=== PATIENT | female | born 1970 | race Caucasian/White ===

== ENCOUNTER 2018-10-24 12:43 | Emergency (ER) | payer OTHER | END 2018-10-24 14:04 | disposition home or self-care (01) | LOC: ER 12:43 ==

== ENCOUNTER 2018-10-25 17:33 | Emergency (ER) | payer MEDICARE ==
[~2018-10-25] VITALS: Ht 162.6 cm; Wt 47.6 kg
[2018-10-25] MEDS ORDERED: RT-ALBUTEROL SULF 2.5 MG/3 ML PRE-MIX VIAL INH STA (18:04)
[2018-10-25] MEDS ORDERED: CARVEDILOL 12.5 MG (COREG) TABLET PO ONE (18:15)
--- OUTSIDE RECORDS SUMMARY | 2018-10-25 18:39 | XMS REPORT | Continuity of Care Document ---
Author Organization Unknown Address Unknown Allergies Active Description Code Type Severity Reaction Onset Reported/Identified Relationship to Patient Clinical Status Yes ASPIRIN 27196 DRUG INGREDI N/A N/A 05/27/2011 Yes PHENYTOIN SODIUM EXTENDED 65027 DRUG N/A Other 05/27/2011 Yes [id number] 60637 DRUG N/A Other 05/27/2011 Medications Medication Packaging Start Date Stop Date Route Dosage Sig ONDANSETRON 4 MG PO TBDP 09/25/2018 Oral 4 ONCE DEXTROSE 50 % IV SOLN 09/25/2018 Intravenous 50 ONCE INSULIN REGULAR HUMAN 100 UNIT/ML IJ SOLN 09/25/2018 Intravenous 10 ONCE POLYETHYLENE GLYCOL 3350 PO PACK 09/25/2018 Oral 17 DAILY PRN MELATONIN 5 MG PO TABS 09/25/2018 Oral 5 BEDTIME PRN SODIUM CHLORIDE 0.9% IV SOLN FLUSH ONLY 09/25/2018 Intravenous 25 PRN FLUSH ALBUTEROL SULFATE HFA 108 (90 BASE) MCG/ACT IN AERS 09/25/2018 Inhalation 1 EVERY 4 HOURS PRN ONDANSETRON HCL 4 MG/2ML IJ SOLN 09/25/2018 Intravenous 4 EVERY 8 HOURS PRN ACETAMINOPHEN 650 MG RE SUPP 09/25/2018 Rectal 650 EVERY 4 HOURS PRN PROCHLORPERAZINE EDISYLATE 10 MG/2ML IJ SOLN 09/25/2018 Intravenous 10 EVERY 6 HOURS PRN ACETAMINOPHEN 325 MG PO TABS 09/25/2018 Oral 650 EVERY 4 HOURS PRN ONDANSETRON 4 MG PO TBDP 09/25/2018 Oral 4 EVERY 6 HOURS PRN LIDOCAINE HCL 1 % IJ SOLN 09/25/2018 Intradermal PRN SODIUM CHLORIDE 0.9 % IV BOLUS 09/25/2018 Dialysis 2000 BOLUS PRN HEPARIN SODIUM (PORCINE) 5000 UNIT/ML IJ SOLN 09/25/2018 Subcutaneous 5000 EVERY 12 HOURS CALCIUM CARBONATE ANTACID 500 MG PO CHEW 09/25/2018 Oral 1 3 TIMES DAILY WITH MEALS NICOTINE 21 MG/24HR TD PT24 09/25/2018 Transdermal 1 DAILY FLUOXETINE HCL 10 MG PO CAPS 09/25/2018 Oral 10 DAILY AMLODIPINE BESYLATE 10 MG PO TABS 09/25/2018 Oral 10 DAILY LISINOPRIL 20 MG PO TABS 09/25/2018 Oral 40 DAILY CARVEDILOL 12.5 MG PO TABS 09/25/2018 Oral 12.5 2 TIMES DAILY PANTOPRAZOLE SODIUM 20 MG PO TBEC 09/26/2018 Oral 20 EVERY MORNING BEFORE BREAKFAST LISINOPRIL 20 MG PO TABS 09/26/2018 Oral 40 DAILY CLONIDINE HCL 0.1 MG PO TABS 09/28/2018 Oral 0.1 EVERY 8 HOURS PRN HYDRALAZINE HCL 25 MG PO TABS 09/28/2018 Oral 75 EVERY 6 HOURS SCHEDULED LIDOCAINE HCL 1 % IJ SOLN 09/28/2018 Intradermal PRN SODIUM CHLORIDE 0.9 % IV BOLUS 09/28/2018 Dialysis 2000 BOLUS PRN Problems Date Dx Coded Attending Type Code Diagnosis Diagnosed By 09/29/2018 MOHAN BECK V 225701 Abdominal Pain 09/29/2018 MOHAN BECK A E87.5 Hyperkalemia 09/29/2018 MOHAN BECK V I16.0 Hypertensive urgency 09/29/2018 CARLA BECKA V N18.6 End stage renal disease (HCC) 09/29/2018 MOHAN BECK P N18.6 End stage renal disease (HCC) 09/29/2018 MOHAN BECK P Z99.2 Dependence on renal dialysis (HCC) 09/29/2018 CARLA BECKA V E87.5 Hyperkalemia 09/29/2018 MOHAN BECK F E87.1 Hypo- osmolality and hyponatremia 09/29/2018 MOHAN BECK F E87.5 Hyperkalemia 09/29/2018 MOHAN BECK F F17.210 Nicotine dependence, cigarettes, uncomplicated 09/29/2018 MOHAN BECK F I12.0 Hypertensive chronic kidney disease with stage 5 chronic kidney disease or end stage renal disease (HCC) 09/29/2018 MOHAN BECK F I16.0 Hypertensive urgency 09/29/2018 MOHAN BECK F I35.0 Nonrheumatic aortic (valve) stenosis 09/29/2018 MOHAN BECK I45.81 Long QT syndrome 09/29/2018 MOHAN BECK F I47.1 Supraventricular tachycardia (HCC) 09/29/2018 MOOLE MOHAN F J44.9 Chronic obstructive pulmonary disease, unspecified (HCC) 09/29/2018 MOOLE MOHAN F K21.9 Gastro- esophageal reflux disease without esophagitis 09/29/2018 MOOLE MOHAN F N18.6 End stage renal disease (HCC) 09/29/2018 MOOLEMOHAN N26.9 Renal sclerosis, unspecified 09/29/2018 MOOLE, MOHAN F R63.6 Underweight 09/29/2018 MOOLE, MOHAN F Z59.9 Problem related to housing and economic circumstances, unspecified 09/29/2018 MOOLEMOHAN Z68.1 Body mass index (BMI) 19.9 or less, adult 09/29/2018 MOOLE, MOHAN Torrez Z71.3 Dietary counseling and surveillance 09/29/2018 MOOLEMOHAN 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 09/29/2018 MOOLEMOHAN 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 09/29/2018 MOOLE MOHAN F Z90.710 Acquired absence of both cervix and uterus 09/29/2018 MOOLEMOHAN Z94.0 Kidney transplant status 09/29/2018 MOHAN BECK Z99.2 Dependence on renal dialysis (HCC) 10/15/2018 SANGITA DUBON V 217498 Abrasion 10/15/2018 SANGITA DUBON T14.8XXA Other injury of unspecified body region, initial encounter 10/15/2018 SANGITA DUBON Z53.21 Procedure and treatment not carried out due to patient leaving prior to being seen by health care provider Procedures Code Description Performed By Performed On [id number] Performance of Urinary Filtration, <6 hrs/day 09/25/2018 Results Test Result Range CBC WITH AUTO DIFFERENTIAL - 09/25/18 12:05 BASOPHILS RELATIVE PERCENT 0.5 % 0.0-2.5 EOSINOPHILS RELATIVE PERCENT 1.9 % <=5.0 HEMATOCRIT 35.1 % 34.9-44.5 HEMOGLOBIN 11.4 g/dL 12.0-15.5 LYMPHOCYTES RELATIVE PERCENT 18.8 % 22.0-49.0 MEAN CORPUSCULAR HEMOGLOBIN 33.8 pg 26.0-34.0 MEAN CORPUSCULAR HEMOGLOBIN CONC 32.5 g/dL 31.0-37.0 MEAN CORPUSCULAR VOLUME 104.2 fL 81.6-98.3 MONOCYTES RELATIVE PERCENT 9.1 % 2.0-9.0 NEUTROPHILS RELATIVE PERCENT 69.7 % 40.0-75.0 NUCLEATED RED BLOOD CELLS 0 10E9/L <=0 PLATELET COUNT 270 10E9/L 150-450 RED BLOOD CELL COUNT 3.37 10E12/L 3.90-5.03 RED CELL DISTRIBUTION WIDTH 18.2 % 11.9-15.5 [id number] 11.0 10E9/L 3.5-10.5 2126553 2.07 10E9/L 0.90-2.90 0133087 1.00 10E9/L 0.30-0.90 3740754 0.21 10E9/L 0.05-0.50 6609249 7.68 10E9/L 1.70-7.00 1520371 0.05 10E9/L 0.00-0.30 4708758 1 % HEPATITIS B SURFACE ANTIGEN - 09/25/18 12:05 HEPATITIS B SURFACE ANTIGEN INTERPRETATION Non-reactive Non- reactive CBC WITH AUTO DIFFERENTIAL - 09/26/18 07:18 BASOPHILS RELATIVE PERCENT 0.8 % 0.0-2.5 EOSINOPHILS RELATIVE PERCENT 1.9 % <=5.0 HEMATOCRIT 41.8 % 34.9-44.5 HEMOGLOBIN 13.2 g/dL 12.0-15.5 LYMPHOCYTES RELATIVE PERCENT 13.3 % 22.0-49.0 MEAN CORPUSCULAR HEMOGLOBIN 33.4 pg 26.0-34.0 MEAN CORPUSCULAR HEMOGLOBIN CONC 31.6 g/dL 31.0-37.0 MEAN CORPUSCULAR VOLUME 105.8 fL 81.6-98.3 MONOCYTES RELATIVE PERCENT 9.6 % 2.0-9.0 NEUTROPHILS RELATIVE PERCENT 74.4 % 40.0-75.0 NUCLEATED RED BLOOD CELLS 0 10E9/L <=0 PLATELET COUNT 274 10E9/L 150-450 RED BLOOD CELL COUNT 3.95 10E12/L 3.90-5.03 RED CELL DISTRIBUTION WIDTH 19.4 % 11.9-15.5 9874006 11.9 10E9/L 3.5-10.5 7880837 1.59 10E9/L 0.90-2.90 6118513 1.15 10E9/L 0.30-0.90 1197286 0.23 10E9/L 0.05-0.50 0625104 8.88 10E9/L 1.70-7.00 0255367 0.09 10E9/L 0.00-0.30 6067141 0 % SCAN - 09/26/18 07:18 ANISOCYTOSIS 2+ [id number] Normal [id number] Results confirmed by microscopic exam [id number] 1+ COMPREHENSIVE METABOLIC PANEL - 09/26/18 07:18 ALBUMIN 4.1 g/dL 3.4-4.8 ALKALINE PHOSPHATASE 72 U/L 29-122 ALT 15 U/L 10-46 ANION GAP 16 AST 21 U/L 16-37 BILIRUBIN,TOTAL 0.3 mg/dL 0.0-1.2 BUN BLOOD 65 mg/dL 6-20 CALCIUM 7.5 mg/dL 8.7-10.5 CHLORIDE 91 mmol/L 99-111 CO2 28 mmol/L 20-36 CREATININE 5.90 mg/dL 0.40-1.10 EGFR 8 mL/min >59 GLUCOSE 78 mg/dL 74-106 POTASSIUM 5.3 mmol/L 3.6-4.9 PROTEIN TOTAL 6.1 g/dL 6.4-8.3 SODIUM 135 mmol/L 136-145 CBC WITH AUTO DIFFERENTIAL - 09/27/18 07:23 BASOPHILS RELATIVE PERCENT 0.5 % 0.0-2.5 EOSINOPHILS RELATIVE PERCENT 2.5 % <=5.0 HEMATOCRIT 37.4 % 34.9-44.5 HEMOGLOBIN 11.8 g/dL 12.0-15.5 LYMPHOCYTES RELATIVE PERCENT 15.1 % 22.0-49.0 MEAN CORPUSCULAR HEMOGLOBIN 33.1 pg 26.0-34.0 MEAN CORPUSCULAR HEMOGLOBIN CONC 31.6 g/dL 31.0-37.0 MEAN CORPUSCULAR VOLUME 105.1 fL 81.6-98.3 MONOCYTES RELATIVE PERCENT 10.5 % 2.0-9.0 NEUTROPHILS RELATIVE PERCENT 71.4 % 40.0-75.0 NUCLEATED RED BLOOD CELLS 0 10E9/L <=0 PLATELET COUNT 250 10E9/L 150-450 RED BLOOD CELL COUNT 3.56 10E12/L 3.90-5.03 RED CELL DISTRIBUTION WIDTH 19.8 % 11.9-15.5 3758266 12.2 10E9/L 3.5-10.5 7940671 1.84 10E9/L 0.90-2.90 6446656 1.28 10E9/L 0.30-0.90 3053183 0.31 10E9/L 0.05-0.50 1533473 8.67 10E9/L 1.70-7.00 2655907 0.06 10E9/L 0.00-0.30 8049903 0 % SCAN - 09/27/18 07:23 ANISOCYTOSIS 2+ POLYCHROMASIA 1+ [id number] Results confirmed by microscopic exam [id number] 1+ COMPREHENSIVE METABOLIC PANEL - 09/27/18 07:23 ALBUMIN 3.9 g/dL 3.4-4.8 ALKALINE PHOSPHATASE 68 U/L 29-122 ALT 12 U/L 10-46 ANION GAP 16 AST 16 U/L 16-37 BILIRUBIN,TOTAL < mg/dL 0.0-1.2 BUN BLOOD 95 mg/dL 6-20 CALCIUM 7.2 mg/dL 8.7-10.5 CHLORIDE 91 mmol/L 99-111 CO2 25 mmol/L 20-36 CREATININE 8.53 mg/dL 0.40-1.10 EGFR 5 mL/min >59 GLUCOSE 80 mg/dL 74-106 POTASSIUM 6.1 mmol/L 3.6-4.9 PROTEIN TOTAL 5.9 g/dL 6.4-8.3 SODIUM 132 mmol/L 136-145 CBC WITH AUTO DIFFERENTIAL - 09/28/18 08:36 BASOPHILS RELATIVE PERCENT 0.6 % 0.0-2.5 EOSINOPHILS RELATIVE PERCENT 1.8 % <=5.0 HEMATOCRIT 38.6 % 34.9-44.5 HEMOGLOBIN 12.3 g/dL 12.0-15.5 LYMPHOCYTES RELATIVE PERCENT 13.8 % 22.0-49.0 MEAN CORPUSCULAR HEMOGLOBIN 34.2 pg 26.0-34.0 MEAN CORPUSCULAR HEMOGLOBIN CONC 31.9 g/dL 31.0-37.0 MEAN CORPUSCULAR VOLUME 107.2 fL 81.6-98.3 MONOCYTES RELATIVE PERCENT 10.7 % 2.0-9.0 NEUTROPHILS RELATIVE PERCENT 73.1 % 40.0-75.0 NUCLEATED RED BLOOD CELLS 0 10E9/L <=0 PLATELET COUNT 212 10E9/L 150-450 RED BLOOD CELL COUNT 3.60 10E12/L 3.90-5.03 RED CELL DISTRIBUTION WIDTH 20.2 % 11.9-15.5 8039172 8.7 10E9/L 3.5-10.5 3890272 1.20 10E9/L 0.90-2.90 4144613 0.93 10E9/L 0.30-0.90 2625739 0.16 10E9/L 0.05-0.50 1231145 6.33 10E9/L 1.70-7.00 1331017 0.05 10E9/L 0.00-0.30 6951685 0 % SCAN - 09/28/18 08:36 ANISOCYTOSIS 3+ [id number] Normal [id number] Results confirmed by microscopic exam [id number] 2+ [id number] 2+ HEPATITIS B SURFACE ANTIBODY - 09/28/18 08:36 1051 < HEPATITIS C ANTIBODY - 09/28/18 08:36 HEP C IGG INTERP. Non-reactive Non-reactive HEPATITIS B CORE ANTIBODY, TOTAL - 09/28/18 08:36 [id number] Negative Negative CBC WITH AUTO DIFFERENTIAL - 09/29/18 06:57 BASOPHILS RELATIVE PERCENT 0.5 % 0.0-2.5 EOSINOPHILS RELATIVE PERCENT 2.7 % <=5.0 HEMATOCRIT 35.7 % 34.9-44.5 HEMOGLOBIN 11.2 g/dL 12.0-15.5 LYMPHOCYTES RELATIVE PERCENT 13.2 % 22.0-49.0 MEAN CORPUSCULAR HEMOGLOBIN 33.9 pg 26.0-34.0 MEAN CORPUSCULAR HEMOGLOBIN CONC 31.4 g/dL 31.0-37.0 MEAN CORPUSCULAR VOLUME 108.2 fL 81.6-98.3 MONOCYTES RELATIVE PERCENT 10.3 % 2.0-9.0 NEUTROPHILS RELATIVE PERCENT 73.3 % 40.0-75.0 NUCLEATED RED BLOOD CELLS 0 10E9/L <=0 PLATELET COUNT 176 10E9/L 150-450 RED BLOOD CELL COUNT 3.30 10E12/L 3.90-5.03 RED CELL DISTRIBUTION WIDTH 19.9 % 11.9-15.5 0586505 9.2 10E9/L 3.5-10.5 2530424 1.21 10E9/L 0.90-2.90 2089587 0.94 10E9/L 0.30-0.90 5662288 0.25 10E9/L 0.05-0.50 4933663 6.72 10E9/L 1.70-7.00 8011737 0.05 10E9/L 0.00-0.30 6940681 0 % SCAN - 09/29/18 06:57 ANISOCYTOSIS 2+ POLYCHROMASIA Occasional TEAR DROP CELLS Occasional [id number] 2+ [id number] 1+ COMPREHENSIVE METABOLIC PANEL - 09/29/18 06:57 ALBUMIN 3.7 g/dL 3.4-4.8 ALKALINE PHOSPHATASE 69 U/L 29-122 ALT 12 U/L 10-46 ANION GAP 11 AST 16 U/L 16-37 BILIRUBIN,TOTAL < mg/dL 0.0-1.2 BUN BLOOD 77 mg/dL 6-20 CALCIUM 7.5 mg/dL 8.7-10.5 CHLORIDE 91 mmol/L 99-111 CO2 27 mmol/L 20-36 CREATININE 7.77 mg/dL 0.40-1.10 EGFR 6 mL/min >59 GLUCOSE 104 mg/dL 74-106 POTASSIUM 5.3 mmol/L 3.6-4.9 PROTEIN TOTAL 5.5 g/dL 6.4-8.3 SODIUM 129 mmol/L 136-145 Radiology Report from 536 on 09/25/2018 12:13:44 EXAM: Chest 25 Sep 2018INDICATION: Respiratory distress in a 48-year-old femaleTECHNIQUE: PA and lateral views 11:55 a.m.COMPARISON: NoneFINDINGS:The heart size is normal.The great vessels appear unremarkable.There is no hilar or mediastinal mass.The lungs are clear.There is no pleural effusion or pneumothorax.There are no significant osseous abnormalities.IMPRESSION:No active cardiopulmonary diseas e. Encounters ACCT No. Visit Date/Time Discharge Status Pt. Type Provider Facility Loc./Unit Complaint [id number] 10/15/2018 16:25:00 10/15/2018 17:20:00 DIS Emergency SANGITA DUBON [facility] EMD [id number] 10/15/2018 15:47:00 10/15/2018 15:57:00 DIS Emergency [facility] [id number] 09/25/2018 11:25:03 09/29/2018 14:44:00 DIS Inpatient MOHAN BECK [address] [id number] 09/30/2018 13:29:17 Document Registration [id number] 09/25/2018 11:50:31 Document Registration
[2018-10-25] MEDS ORDERED: RT-ALBUINH INH (18:47)
--- NOTE | 2018-10-25 18:48 | ED General ---
General Chief Complaint: Respiratory Problems Stated Complaint: SOB/STOMACH PAIN Nursing Triage Note: PT ARRIVES VIA EMS WITH C/O ABD PAIN AND SOA. PT DENIES CHEST PAIN. PT STATES SHE SMOKES 1/2 OF CIGARETTES PER DAY. PT WAS IN [employer] UNTIL 1500 TODAY AND HAS NOT TAKEN ANY OF HER MEDICATIONS SINCE SHE WAS IN THE ER YESTERDAY. Nursing Sepsis Screen: No Definite Risk History of Present Illness Date Seen by Provider: Oct 25, 2018 Time Seen by Provider: 17:45 Initial Comments 48-year-old female presents via EMS. She was recently released from the [facility] and walked approximately one block, she presented to the [facility] requesting a transfer to her dialysis center. When it was explained that this could not be done she then called 911 requesting a transfer to dialysis. In EMS. The patient up-to-date explained to her that she could be brought to the emergency department but not to her dialysis center. She then requested transfer to via [facility] emergency department. When questioned about her health complaints, the patient states "I just needed a ride to [place] because my car is at the [place] police department. I do not need anything here. I just couldn't walk from [place] to my car but I can walk from here to my car." Verified patient declined dyspnea, shortness of air, chest pain, or abdominal pain. She is scheduled for her next dialysis treatment tomorrow. Timing/Duration: 1 Hour Associated Systoms: Denies Symptoms Allergies and Home Medications Allergies Coded Allergies: No Known Drug Allergies (Unverified , 10/24/18) Home Medications Albuterol Sulfate 1 Puff Puff, 2 PUFF INH Q4H 1 PUFF = 90 MCG Prescribed by: THAIS PALAFOX on 10/25/18 1694 Patient Home Medication List Home Medication List Reviewed: Yes Review of Systems Review of Systems Constitutional: no symptoms reported, see HPI All Other Systems Reviewed Negative Unless Noted: Yes Past Gekpymp-Jhxkon-Ypbdbs Hx Past Med/Social Hx: Reviewed Nursing Past Med/Soc Hx Patient Social History Alcohol Use: Denies Use Recreational Drug Use: Yes Drug of Choice: THC Smoking Status: Current Everyday Smoker Type Used: Cigarettes 2nd Hand Smoke Exposure: Yes Recent Foreign Travel: No Contact w/Someone Who Travel: No Recent Infectious Disease Expo: No Recent Hopitalizations: No Physical Abuse: No Sexual Abuse: No Seasonal Allergies Seasonal Allergies: No Past Medical History Surgeries: Yes Kidney Transplant, Renal Respiratory: Yes COPD Cardiac: Yes Hypertension Neurological: No Genitourinary: Yes Renal Failure, Dialysis Gastrointestinal: No Musculoskeletal: No Endocrine: Yes HEENT: No Cancer: No Psychosocial: No Integumentary: No Blood Disorders: Yes Physical Exam Vital Signs Vital Signs - First Documented 10/25/18 17:41 Temp 97.6 Pulse 80 Resp 18 B/P (MAP) 214/113 (146) Pulse Ox 97 O2 Delivery Room Air Capillary Refill : Less Than 3 Seconds Height, Weight, BMI Height: 5'4.00" Weight: 105lbs. oz. 47.922586ac; BMI Method:Stated General Appearance: No Apparent Distress, WD/WN Neck: Full Range of Motion, Normal Inspection, Non Tender, Supple Respiratory: Chest Non Tender, Lungs Clear Cardiovascular: Regular Rate, Rhythm, No Edema, Normal Peripheral Pulses, Diastolic Murmur Neurologic/Psychiatric: Alert, Oriented x3, No Motor/Sensory Deficits, Normal Mood/Affect Progress/Results/Core Measures Suspected Sepsis Recent Fever Within 48 Hours: No Infection Criteria Present: None New/Unexplained Altered Menta: No Sepsis Screen: No Definite Risk SIRS Temperature:97.6 Pulse: 80 Respiratory Rate: 18 Blood Pressure 214 /113 Mean: 146 Results/Orders My Orders Orders - THAIS PALAFOX Albuterol Pre-Mix Nebs (Rt) (Proventil (10/25/18 18:04) Svn Small Volume Nebulizer (10/25/18 18:04) Carvedilol Tablet (Coreg Tablet) (10/25/18 18:15) Medications Given in ED Current Medications Medications Dose Ordered Sig/Uri Route Start Time Stop Time Status Last Admin Dose Admin Carvedilol 12.5 mg ONCE ONCE PO 10/25/18 18:15 10/25/18 18:16 DC 10/25/18 18:28 12.5 MG Vital Signs/I&O 10/25/18 10/25/18 17:41 18:57 Temp 97.6 97.6 Pulse 80 80 Resp 18 18 B/P (MAP) 214/113 (146) 186/91 (122) Pulse Ox 97 97 O2 Delivery Room Air Capillary Refill : Less Than 3 Seconds Blood Pressure Mean: 146 Departure Impression Primary Impression: Hypertension Qualified Codes: I10 - Essential (primary) hypertension Additional Impression: COPD (chronic obstructive pulmonary disease) Qualified Codes: J44.9 - Chronic obstructive pulmonary disease, unspecified Disposition: 01 HOME, SELF-CARE Condition: Stable Departure-Patient Inst. Decision time for Depature: 18:45 Referrals: NO,LOCAL PHYSICIAN (PCP/Family) Primary Care Physician Patient Instructions: Chronic Kidney Disease (DC), High Blood Pressure (DC) Add. Discharge Instructions: Continue home medication. Keep your scheduled appointment for dialysis tomorrow. Follow-up with your primary care provider. Increase water intake, 16 ounces every 2 hours while awake. Return to emergency department for new, urgent health care needs. All discharge instructions reviewed with patient and/or family. Voiced understanding. Scripts Albuterol Sulfate (VENTOLIN HFA) 1 Puff Puff 2 PUFF INH Q4H, #1 INHALER 0 Refills 1 PUFF = 90 MCG Prov: THAIS PALAFOX 10/25/18 THAIS PALAFOX Oct 25, 2018 18:48
[2018-10-25 18:57] VITALS: BP 186/91
== END 2018-10-25 18:59 | disposition home or self-care (01) ==
LOC: EDUNIT# 17:33 → ER 17:34
DX: J44.9 Chronic obstructive pulmonary disease, unspecified (principal); I10 Essential (primary) hypertension; F17.210 Nicotine dependence, cigarettes, uncomplicated; F12.10 Cannabis abuse, uncomplicated; Z94.0 Kidney transplant status
CPT/HCPCS: 99283